=== PATIENT | male | born 1970 | race Caucasian/White ===

== ENCOUNTER → 2020-07-17 12:55 | Outpatient (BNVA) | payer MEDICAID, SELFPAY | PROVIDERS: PCP Nurse Practitioner Family; Visit Provider Urology | DX: F41.8 Other specified anxiety disorders (principal) | CPT/HCPCS: 99202 ==

== ENCOUNTER → 2020-08-23 10:34 | Outpatient (BNVA) | payer MEDICAID, SELFPAY | PROVIDERS: PCP Nurse Practitioner Family; Visit Provider Urology | DX: Z30.2 Encounter for sterilization (principal) | CPT/HCPCS: 55250 ==

== ENCOUNTER → 2020-11-23 08:28 | Outpatient (BNVA) | payer MEDICAID, SELFPAY | PROVIDERS: PCP Nurse Practitioner Family; Visit Provider Urology | DX: F41.8 Other specified anxiety disorders (principal) | CPT/HCPCS: 99212 ==